=== PATIENT | female | born 1980 | race Caucasian/White ===

== ENCOUNTER → 2021-05-08 | Outpatient (CLI) | payer BC ==
[2021-05-08 11:04] LABS: HCT 43.8 % (37.2-46.3); HGB 13.5 g/dL (12.0-15.0); MCH 26.1 pg (27.0-32.0); MCHC 30.8 g/dL (32.0-37.0); MCV 84.6 fL (80.0-97.0); Mean Platelet Volume 11.1 fL (9.5-12.2); Platelet Count 262 X 10*3/uL (140-440); RBC 5.18 X 10*6/uL (4.10-5.20); RDW 13.8 % (11.5-14.5); WBC 7.59 X 10*3/uL (4.50-10.00)
[2021-05-08 15:23] LABS: African American GFR (CKD) 107.6 (60.0-200.0); Albumin 4.5 g/dL (3.8-4.9); Albumin/Globulin Ratio 1.73 (1.60-3.17); Anion Gap 11.1 mmol/L (10.00-18.00); BUN/Creat Ratio 16.5 Ratio (12.00-20.00); Blood Urea Nitrogen 13.2 mg/dL (9.0-27.0); Calcium 9.2 mg/dL (8.7-10.3); Carbon Dioxide 22.9 mmol/L (20.0-27.5); Globulin 2.6 g/dL (1.6-3.3); Non-African American GFR(CKD) 92.9 (60.0-200.0); Potassium 4.3 mmol/L (3.5-5.5); Total Bilirubin 0.3 mg/dL (0.30-1.20); Total Protein 7.1 g/dL (6.2-8.2)
== END | disposition home or self-care (01) ==
LOC: LABWHC1 07:57
PROVIDERS: ATTEND Internal Medicine
DX: E11.9 Type 2 diabetes mellitus without complications (principal)
CPT/HCPCS: 36415; 80053; 83036; 85027

== ENCOUNTER → 2023-06-28 | Outpatient (CLI) | payer BC ==
[2023-06-28 12:20] LABS: Basophils # (A) 0.03 X 10*3/uL (0.00-0.10); Basophils % (A) 0.4 %; Eosinophils # (A) 0.19 X 10*3/uL (0.04-0.35); Eosinophils % (A) 2.7 %; HCT 38.9 % (37.2-46.3); Lymphocytes # (A) 2.73 X 10*3/uL (0.90-5.00); Lymphocytes % (A) 38.8 %; MCH 25.9 pg (27.0-32.0); MCHC 30.8 g/dL (32.0-37.0); Mean Platelet Volume 11.4 FL (9.5-12.2); Monocytes # (A) 0.46 X 10*3/uL (0.20-1.00); Monocytes % (A) 6.5 %; NRBC Per 100 WBC 0 X 10*3/uL (0.00-0.01); Neutrophils # (A) 3.61 X 10*3/uL (1.80-7.70); Neutrophils % (A) 51.5 %; Platelet Count 281 X 10*3/uL (140-440); RBC 4.63 X 10*6/uL (4.10-5.20); RDW 13.8 % (11.5-14.5); WBC 7.03 X 10*3/uL (4.50-10.00)
== END | disposition home or self-care (01) ==
LOC: LABPAT 07:11
PROVIDERS: ATTEND Internal Medicine
DX: Z01.812 Encounter for preprocedural laboratory examination (principal); N92.0 Excessive and frequent menstruation with regular cycle
CPT/HCPCS: 36415; 85025

== ENCOUNTER → 2023-07-01 | Day surgery (SDC) | payer BC ==
[2023-06-27 15:45] VITALS: BMI 30.4
[~2023-07-01] MED LIST: ACETAMINOPHEN TAB 325 MG TAB PO PRN; Acetaminophen-Codeine 300-30mg TAB PO PRN; HYDROmorphone 0.5 MG/0.5 ML SYRINGE IVP PRN; IBUPROFEN 600 MG TAB PO PRN; KETOROLAC 15 MG/ML 1 ML VIAL IVP PRN; KETOROLAC 15 MG/ML 1 ML VIAL ONE; LACTATED RINGERS 1,000 ML IV SCH; LIDOCAINE 1% INJ 10MG/ML (20 ML MDV) ONE; METOCLOPRAMIDE 5 MG/ML 2 ML VIAL IVP PRN; MIDAZOLAM 2 MG/2 ML VIAL IV PRN; MIDAZOLAM 2 MG/2 ML VIAL ONE; ONDANSETRON 4 MG/2 ML VIAL IVP PRN; PROPOFOL 10 MG/ML 20 ML VIAL IV ONE; Pre Op ABX Message 1 EACH MISC MISCELLANE ONE; SCOPOLAMINE 1 MG/72 HR PATCH TRANSDERM ONE; SIMETHICONE 80 MG CHEWABLE PO PRN; diphenhydrAMINE 50 MG/ML 1 ML VIAL IVP PRN; fentaNYL (PF) 50 MCG/ML 2 ML AMP ONE
[2023-07-01] MEDS: LACTATED RINGERS 1,000 ML IV SCH (10:30)
[2023-07-01] MEDS: DEXAMETHASONE SOD PHOSPHATE 4 MG/ML 1 ML VIAL IV ONE (10:34)
[2023-07-01] MEDS: ONDANSETRON 4 MG/2 ML VIAL IVP ONE (10:34)
[2023-07-01 10:44] LABS: Glucose,Whole Blood 96 mg/dL (70-110)
[2023-07-01 10:59] VITALS: RESP 16
--- NOTE | 2023-07-01 12:34 | P.OP ---
Date of Procedure: 07/01/23 Preoperative Diagnosis: #1. Menorrhagia Postoperative Diagnosis: Same Procedure(s) Performed: #1. Diagnostic hysteroscopy #2. Dilation and sharp curettage Anesthesia: other (General by LMA) Surgeon: Erasto Wellington Estimated Blood Loss (ml): 5 IV fluids (ml): 400 Urine output (ml): 50 Pathology: other (Endometrial curettings) Condition: stable Disposition: PACU Operative Findings: Preoperative pelvic examination demonstrated roughly 5 weeks slightly anteverted mobile normal shaped uterus with normal adnexa bilaterally. Intraoperatively, the uterus sounded to approximately 9 to 10 cm. The hysteroscope was utilized to see the bilateral tubal ostia. Visualization was suboptimal secondary to distention with saline but no obvious pathology was noted and there was a relative lack of shaggy endometrium noted compared to the amount of tissue produced with curettage. Sharp curettage did produce a moderate to significant amount of tissue. The typical gritty endometrial texture was encountered throughout. The patient is a potential candidate for vaginal hysterectomy should it become necessary. Description of Procedure: The patient was prepped and draped in usual fashion after general anesthesia was administered by the anesthesiologist. A weighted speculum was placed in the bladder drained of approximately 50 cc of clear vini urine. The anterior lip of the cervix was grasped with a single-tooth tenaculum and the uterus sounded to approximately 10 cm as noted above. Serial dilation was carried out to admit the diagnostic hysteroscope which was placed in the cavity distended with saline. The bilateral tubal ostia were seen and the upper endometrial cavity appeared to be smooth without any evidence of pathology or shaggy endometrial tissue. Visualization was somewhat suboptimal secondary to using the use of saline rather than sorbitol. After adequate hysteroscopy been carried out and no obvious findings of pathology noted, the scope was set aside in favor of a medium sharp curette. Thorough and circumferential curettage was carried out onto a Telfa placed in the vagina with a moderate to significant amount of polypoid appearing tissue removed. Despite the amount of tissue, the typical gritty texture was encountered throughout the entire cavity. After several circumferential passes with a sharp curette, no further tissue was being produced. The instrumentation was removed and there was no ongoing bleeding from either the cervix or from the tenaculum site. The patient was deemed to be an adequate candidate for vaginal hysterectomy should it become necessary. Estimated blood loss for the case was approximately 5 cc or less. There were no complications. All sponge, instrument, and needle counts were correct. The patient tolerated the procedure well and proceeded to the recovery room in stable condition.
[2023-07-01 12:53] VITALS: TEMP 96.9
[2023-07-01 13:17] LABS: Glucose,Whole Blood 102 mg/dL (70-110)
[2023-07-01 13:33] LABS: Glucose,Whole Blood 108 mg/dL (70-110)
[2023-07-01 14:06] VITALS: BP 101/69; PULSE 92
== END | disposition home or self-care (01) ==
LOC: OR 09:56
PROVIDERS: ATTEND Obstetrics & Gynecology
DX: N84.0 Polyp of corpus uteri (principal); E78.5 Hyperlipidemia, unspecified; G47.33 Obstructive sleep apnea (adult) (pediatric); F41.9 Anxiety disorder, unspecified; Z79.84 Long term (current) use of oral hypoglycemic drugs; Z79.899 Other long term (current) drug therapy
CPT/HCPCS: 81025; 88305; 58558; J2250; J1100; J2405; J2001; J3010; J1885; J2704